=== PATIENT | male | born 1950 | race Caucasian/White ===

== ENCOUNTER 2019-05-29 12:35 | Observation (INO) | payer MEDICARE, OTHER, SELFPAY ==
[2019-05-29] VITALS (12 sets, daily range): BP systolic 152–178; BP diastolic 67–84; PULSE 57–75; RESP 16–20; TEMP 36.3–37; O2SAT 94–97; BMI 27.8; BMI 27.6
--- NOTE | 2019-05-29 12:41 | EKG12_ITS ---
Test Reason : DIZZINESS Blood Pressure : / mmHG Vent. Rate : 068 BPM Atrial Rate : 068 BPM P-R Int : 152 ms QRS Dur : 102 ms QT Int : 388 ms P-R-T Axes : 006 009 081 degrees QTc Int : 412 ms Normal sinus rhythm Nonspecific T wave abnormality Abnormal ECG Confirmed by BAUDILIO NAIK, CIARRA ([id number]), material expeditor RUFINO RUBIO ([id number]) on 05/31/2019 1:42:43 PM Referred By: Yamel Duffy Confirmed By:EVY ASTUDILLO MD
--- NOTE | 2019-05-29 13:12 | CT_ITS ---
STUDY: CT BRAIN WITHOUT CONTRAST REASON FOR EXAM: Male, 69 years old. Dizziness. RADIATION DOSAGE (If Supplied By Facility): CTDIvol = ( 60.81 ) mGy, DLP = ( 1181.11 ) mGycm TECHNIQUE: Transaxial CT imaging of the brain was performed without administration of intravenous contrast material. Individualized dose optimization techniques were used for this CT. COMPARISON: No relevant priors. FINDINGS: Normal soft tissue structures. Normal calvarium. Normal size ventricles and extra-axial spaces for the patient's age. Normal white matter tracts of the cerebral hemispheres. Normal basal ganglia and thalami. Normal brainstem. Normal cerebellum. There is no intracranial hemorrhage. There are no findings of an acute ischemic infarction. Normal visualized paranasal sinuses. CT/Brain/Head without Contrast IMPRESSION: Normal unenhanced CT scan of the brain. Electronically Signed: Justyn Cosme, at 14:25 EDT , Service support ,
[2019-05-29] MEDS: 0.9% Normal Saline 1,000 ML 50 ML IV (13:21)
--- NOTE | 2019-05-29 13:24 | RAD_ITS ---
STUDY: X-RAY CHEST REASON FOR EXAM: Male, 69 years old. Hypertension. TECHNIQUE: Single AP portable view of the chest. COMPARISON: None. FINDINGS: EKG electrodes are seen. The lungs are clear and expanded. There is no demonstrated pleural abnormality. Normal size heart. Normal mediastinum and gus. Normal visualized pulmonary arteries. There is atherosclerotic calcification of the aortic arch with tortuosity. There are diffuse degenerative changes of the visualized thoracic spine. There is degenerative osteoarthritis of the bilateral shoulders. There is no demonstrated abnormality of the visualized soft tissue structures of the upper abdomen. RAD/Chest 1 View (Portable) IMPRESSION: No acute abnormality is seen. Electronically Signed: Justyn Cosme, at 13:44 EDT , Service support ,
--- NOTE | 2019-05-29 13:30 | NURSING ---
NO OLD EKGS
[2019-05-29 13:31] LABS: Absolute Lymphocyte Count 1.59 X10^3/uL (0.83-4.51); Absolute Neutrophil Count 4.2 X10^3/uL (2.0-7.7); Basophil# 0.03 X10^3/uL; Basophil% 0.5 % (0-1); Eosinophil# 0.11 X10^3/uL; Eosinophils% 1.7 % (0-5); Hematocrit 43.3 % (40-54); Hemoglobin 14.7 g/dL (13.0-16.5); Lymphocyte # 1.59 X10^3/ul (4.0); Lymphocyte % 24.5 % (19-41); Mean Corp Hgb Conc 33.9 g/dL (32-36); Mean Corpuscular Hgb 29.4 pg (27.0-32.0); Mean Corpuscular Volume 86.6 fL (80-94); Mean Platelet Vol. 10.3 fl (6.2-12.0); Monocyte# 0.59 X10^3/uL; Monocyte% 9.1 % (0-10); NRBC Flagged by Analyzer 0 % (0-5); Neutrophil # 4.16 X10^3/uL (2.7-7.7); Neutrophil % 63.9 % (47-70); Platelet Count 153 K/mm3 (150-450); RBC Distribution Width CV 13.1 % (11.6-14.6); RBC Distribution Width SD 40.8 fl (35.1-43.9); White Blood Count 6.5 K/mm3 (4.4-11.0)
[2019-05-29 13:47] LABS: Anion Gap 6 (5-15); BUN 20 mg/dL (7-18); BUN/Creat Ratio 16.8 RATIO (10-20); Calcium,Total 9.1 mg/dL (8.5-10.1); Chloride 107 mmol/L (98-107); Creatinine, Serum 1.19 mg/dL (0.70-1.30); EST Glomerular Filtration Rate 64 mL/min (>60); Est Glom Filt Rate - Afr Amer 78 mL/min (>60); Estimated Creatinine Clearance 58.79 ml/min; Glucose 177 mg/dL (74-106); Potassium 4.4 mmol/L (3.5-5.1); Sodium Level 139 mmol/L (136-145)
[2019-05-29 13:49] LABS: International Normalized Ratio 1.1; Partial Thromboplast Time 27.6 Seconds (24.1-36.2); Prothrombin Time (Protime)PT. 13.8 SECONDS (11.7-14.9)
[2019-05-29 13:51] LABS: Bedside Glucose 158 mg/dL (70-110)
--- NOTE | 2019-05-29 15:10 | ED.VISSUMM ---
- ER Visit Summary Date of Service: 05/29/19 Chief Complaint: [Dizziness and difficulty with ambulation] History of Present Illness: The patient is a 69 M [presents to the emergency department stating that he feels very off balance and is having a hard time walking. Patient is visiting from [facility]. Patient states that he had an episode of lightheadedness 5 days ago that passed after a short time. Patient also several days ago had several episodes of loose watery stools. Patient yesterday had an episode of vertigo lasted about 15 minutes then resolved. Today around 1030 noticed that when he try to walk he felt very off balance and unsteady and felt like he had a hold onto things. He denies any vertigo today. He denies any paresthesias. He denies any weakness in the extremities. He denies any speech difficulty. He denies any vision changes. History of diabetes, hypertension, and high cholesterol. Patient has history of aortic stenosis. She had a stress test about 4 months ago that was unremarkable. Has had history of migraines in the past. With prior history of melanoma and basal cell carcinoma.] Physical Examination: [HEENT-PERRLA, EOMI. Cranial nerves II through XII grossly intact. TMs clear. Mucous membranes moist. No adenopathy. Cardiovascular-regular rate and rhythm without murmur or ectopy Lungs-clear to auscultation, chest wall stable without crepitus or subcu emphysema Abdomen-normoactive bowel sounds, soft, nontender, no rebound or rigidity, no peritoneal signs. Neuro [id number]-[id number]-flvr and heel nj testing within normal limits, negative Romberg, negative for drift, fundi benign. Hallpike maneuver was negative for nystagmus. I did have patient ambulate and he is able to bear weight but seems somewhat unsteady. Extremities-intact ?4, normal range of motion, normal pulses, atraumatic] Test Results: [CT scan of the brain without contrast was unremarkable. CBC with differential obtained was normal. Chemistries were normal. Troponin is less than 0.015. EKG obtained arrival showed a sinus bradycardia with a ventricular rate of 68 bpm with some nonspecific ST changes noted.] Emergency Department Course and Treatment: [Patient case was discussed with hospitalist will evaluate patient for admission.] Treatment Plan: [Admit for further work-up and evaluation of his dizziness and difficulty ambulating. Will need further stroke work-up as etiology of symptoms unclear at this time. Patient's NIH stroke scale was 0 and he is not a TPA candidate.] Disposition: [Admit] Impression: [Venous Difficulty ambulating-etiology uncertain] This note was generated with [email or web address] dictation software. It may contain incorrect words, spelling, and punctuation that were not noted in review of the chart prior to signing ED Disposition - Plan for ED Patient: Referrals: [facility] Doctor,Out of [Primary Care Provider] -
--- NOTE | 2019-05-29 15:19 | PCM.HP.STD ---
Problem List (1) Gait disturbance Status: Acute (2) Hypertension Status: Chronic Qualifiers: Hypertension type: essential hypertension Qualified Code(s): I10 - Essential (primary) hypertension (3) Hyperlipidemia Status: Chronic Qualifiers: Hyperlipidemia type: unspecified Qualified Code(s): E78.5 - Hyperlipidemia, unspecified (4) Diabetes mellitus, type II Status: Chronic Qualifiers: Diabetes mellitus shelter insulin use: without terminal gauger use Diabetes mellitus complication status: with other specified complication Qualified Code(s): E11.69 - Type 2 diabetes mellitus with other specified complication (5) Low testosterone Status: Chronic (6) History of malignant neoplasm of appendix Status: Chronic (7) History of testicular cancer Status: Chronic History of Present Illness Date of Admission: 05/29/19 Chief Complaint: Dizziness, unstead gait The patient is a 69 y/o M w/ PMHx: HTN, HLD, BPH, Diabetes mellitus type II, history of appendiceal cancer status post resection, history of testicular seminoma status post right orchiectomy who presents to the [facility] ED on 05/29/19 with history of recently travel from [place], visiting his son who lives locally with vague history the week prior of an episode of lightheadedness and dizziness, improved after only minutes with then spicy food intake the Monday prior to the current week with over the weekend some mildly loose stools which he attributed which have since resolved with onset the day prior to current presentation again episode of lightheadedness, dizziness, no specific vertiginous symptoms who now presents to the ED with history of abnormal gait starting earlier in the morning at approximately 10:30 AM. Evaluation in the emergency room with mild difficulty with gait but no specific leaning. Work-up in the ED included T 97.4, heart rate 71, BP 157/84, respiratory rate 16, 95% on room air, negative with static vital signs, CBC unremarkable, coags unremarkable, BMP with BUN/creatinine 20/1.19, glucose 177, troponin less than 0.015, chest x-ray with no acute cardiopulmonary findings, CT head with no acute intracranial findings, EKG w/ sinus bradycardia with nonspecific ST changes. In the ED patient administered normal saline. Past Medical History Past Medical History (Chronic Problems): Chronic Problems Hypertension (Chronic) Hyperlipidemia (Chronic) Diabetes mellitus, type II (Chronic) Low testosterone (Chronic) History of malignant neoplasm of appendix (Chronic) History of testicular cancer (Chronic) Allergies No Known Allergies Allergy (Verified 05/29/19 12:37) Home Medications: Ambulatory Orders Medication Instructions Recorded Albuterol IH (ProAir) [Proair Hfa 1 puff INHALATION Q4H PRN PRN 05/29/19 (SP)Vent Pts] Aspirin 81 mg PO DAILY 05/29/19 Atenolol 12.5 mg PO DAILY 05/29/19 Lisinopril [Prinivil] 10 mg PO DAILY 05/29/19 Metformin HCl 850 mg PO BID 05/29/19 Naproxen Sodium [Aleve] 440 mg PO DAILY 05/29/19 [place]-3 Fatty Acids/Fish Oil 2 cap PO DAILY 05/29/19 [[place] 3 Fish Oil Softgel] Rosuvastatin Calcium 10 mg PO DAILY 05/29/19 Tadalafil [Cialis] 10 mg PO DAILY PRN PRN 05/29/19 Tamsulosin HCl [Flomax] 0.4 mg PO DAILY 05/29/19 Testosterone [Androgel] 1 applicatio TP DAILY 05/29/19 Surgical History: - - Appendiceal cancer with resection, testicular seminoma with right orchiectomy, vasectomy with reversal, right total hip replacement. Psychiatric History: No pertinent psych hx Lives: Spouse/ Significant Other Smoking Status: Former smoker - Patient quit proximate 30 years prior with prior to this pipe tobacco usage. Tobacco Use: Non-smoker Alcohol: Occasional Drugs: None - *Family History Maternal History Items: - - Maternal family history of heart disease, stroke, major with in her 70s Paternal History Items: - - Paternal family history of successful suicide in his 40s with anxiety depressive history. Review of Systems Constitutional: Reports: Fatigue. Denies: Chills, Fever, Malaise, Weakness, Weight Change HEENT: Denies: Head Aches, Sinus Congestion, Sinus Drainage Cardiovascular: Reports: Light Headedness. Denies: Chest Pain, Palpitations Respiratory: Denies: Cough, Shortness of breath at rest, Sputum production Gastrointestinal: Denies: Abdominal Pain, Nausea, Vomiting Genitourinary: Denies: Dysuria Musculoskeletal: Reports: Back Pain, Joint Pain. Denies: Joint Tenderness Skin: Denies: Rash, Wounds Neurological: Reports: Balance problems. Denies: Focal weakness, Numbness, Tingling Psychiatric: Denies: Anxiety, Depression, Homicidal Ideations, Suicidal Ideations Hematologic/ Lymphatic: Denies: Easy Bruising, Easy Bleeding VTE Information - Inpt Only VTE Present on Admission: No VTE Mechan Device Prophylaxis: SCD's VTE Pharm Prophylaxis ordered?: Yes Patient Problems: Active and Suspected Problems Gait disturbance (Acute) Subjective: Patient seated upright in the ED bed, no acute distress, no current complaints of dizziness. Objective: Physical Examination: General: awake, alert, oriented x 3 and cooperative, seated upright in the ED bed in no apparent distress. Skin: normal color, turgor, no icterus, cyanosis. HEENT: AT/NC, EOMI, PERRLA, MMM, no carotid bruits or JVD noted. Lungs: CTA bilaterally, moderate effort, mild decrease BL bases, no rales, ronchi or wheezing. Heart: Regular rate and rhythm; no gallop, rub audible, SM. Abdomen: soft, NTTP, ND, normal BS, no HSM. Extremities: no cyanosis, clubbing, or edema. Neurological: patient awake, alert, oriented x 3; cognitive function intact; pupils equally reactive to light and accomodation; cranial nerves II-XII grossly normal, moving all 4 extremities, no focal deficits, strength preserved, finger-nose bilaterally appropriate, [id number]-ik-[id number] bilaterally appropriate, negative Babinski bilaterally, sensation intact bilaterally, acevedo of vision intact. Psychiatric: affect appears mildly fatigued, no acute evidence of depressive or anxiety feelings. - Physical Exam Vital Signs Temp Pulse Resp BP Pulse Ox 97.4 F L 63 20 H 163/84 H 94 05/29/19 12:37 05/29/19 14:05 05/29/19 14:05 05/29/19 14:05 05/29/19 14:05 Oxygen Delivery Method Room Air Weight: 194 lb 0.108 oz Body Mass Index (BMI) 27.8 Finger Stick Blood Glucose 158 Laboratory Tests Past 24 Hrs 05/29/19 05/29/19 05/29/19 13:20 13:20 13:20 WBC 6.5 RBC 5.00 Hgb 14.7 Hct 43.3 MCV 86.6 MCH 29.4 MCHC 33.9 RDW Std Deviation 40.8 RDW Coeff of Ben 13.1 Plt Count 153 MPV 10.3 Immature Gran % (Auto) 0.300 Neut % (Auto) 63.9 Lymph % (Auto) 24.5 [place] % (Auto) 9.1 Eos % (Auto) 1.7 Baso % (Auto) 0.5 Absolute Neuts (auto) 4.2 Absolute Lymphs (auto) 1.59 Nucleated RBC % 0 PT 13.8 INR 1.1 APTT 27.6 Sodium 139 Potassium 4.4 Chloride 107 Carbon Dioxide 26.0 Anion Gap 6 BUN 20 H Creatinine 1.19 Estim Creat Clear Calc 58.79 Est GFR (MDRD) Af Amer 78 Est GFR (MDRD) Non-Af 64 BUN/Creatinine Ratio 16.8 Glucose 177 H Calcium 9.1 Troponin I < 0.015 POC Glucose 05/29/19 13:30 POC Glucose 158 H Assessment/Plan All Active Problems Gait disturbance (Acute) The patient is a 69 y/o M w/ PMHx: HTN, HLD, BPH, Diabetes mellitus type II, history of appendiceal cancer status post resection, history of testicular seminoma status post right orchiectomy who presents to the [facility] ED on 05/29/19 with history of episode x2 of lightheadedness and dizziness which resolved after minutes over the last 1 week with now onset gait disturbance starting at approximately 10:30 AM on ED day of presentation. 1. Unsteady Gait concerning for TIA/CVA: Work-up in the ED included T 97.4, heart rate 71, BP 157/84, respiratory rate 16, 95% on room air, negative with static vital signs, CBC unremarkable, coags unremarkable, BMP with BUN/creatinine 20/1.19, glucose 177, troponin less than 0.015, chest x-ray with no acute cardiopulmonary findings, CT head with no acute intracranial findings, EKG w/ sinus bradycardia with nonspecific ST changes. Will admit to PCU, will obtain MRI Brain, MRA Head and Neck, ECHO, PT/OT/Speech/Nutrition evaluation per protocol. Will allow permissive HTN the MRI results, maintain on asa with addition of plavix given already previously on ASA only, transition to high dose statin w/ AM FLP, fall precautions. Mag, TSH, FLP, HgbA1c pending. 2. Diabetes mellitus type II: Hold oral home regimen, obtain hemoglobin A1c, nutrition consulted for education teaching, ADA diet, accu checks w/ ISS. 3. Hypertension: Maintain on permissive hypertension pending further evaluation #1. 4. Hyperlipidemia: Continue home statin regimen. AM FLP. 5. BPH: Continue patient home Flomax regimen. 6. DVT prophylaxis: SCDs, Lovenox. Code Visit OBSV E&M: [id number] Initial observation care L3
--- NOTE | 2019-05-29 15:31 | NURSING ---
PCU WHITE OBS DIZZINESS, DIFFICULTY AMBULATING
--- NOTE | 2019-05-29 16:28 | ECHOD_ITS ---
Reason For Study: TIA/CVA Procedure This was a 2D Doppler, Color Flow transthoracic echocardiogram. Contrast injection was performed. Exam performed portable in patient room. Left Ventricle Normal LV size. Concentric left ventricular hypertrophy. The estimated ejection fraction is 65 %. No regional wall motion abnormalities noted. Right Ventricle Normal RV size. Normal systolic function. Atria Normal left atrium. Normal right atrium. No doppler evidence for ASD. Bubble contrast study negative for right to left interatrial shunt. Mitral Valve There is no mitral valve stenosis. No mitral valve insufficiency. Tricuspid Valve There is no tricuspid stenosis. Trivial tricuspid valve insufficiency. Pulmonary artery systolic pressure is 35 mmHg. Aortic Valve Moderate aortic stenosis. Mild (1+) aortic valve insufficiency. Pulmonic Valve There is no pulmonic valvular stenosis. No pulmonic valve insufficiency. Great Vessels Normal aortic root. Pericardium/Pleural No pericardial effusion. Medication Performed a rapid injection of agitated mix of 9 cc saline and 1cc air to assess for atrial septal defect. MMode/2D Measurements & Calculations LVIDd: 4.1 cm IVSd: 1.5 cm LVOT diam: 2.0 cm LVIDs: 2.6 cm LVPWd: 1.3 cm FS: 37.9 % LVOT area: 3.3 cm2 Ao root diam: 3.7 cm LAV(MOD-bp): 44.4 ml LA A4 area: 17.6 cm2 LA dimension: 4.3 cm LAV(MOD-bp) Indexed: 21.8 ml/m2 LAV(MOD-sp2): 39.5 ml LAV(MOD-sp4): 44.6 ml RA A4 area: 17.9 cm2 Time Measurements MV dec time: 0.24 sec Doppler Measurements & Calculations MV E max roya: 76.8 cm/sec MV V2 max: 112.7 cm/sec MV P1/2t max roya: 106.9 cm/sec MV A max roya: 96.4 cm/sec MV max P.1 mmHg MV P1/2t: 70.2 msec MV E/A: 0.80 MV V2 mean: 52.1 cm/sec MV mean P.3 mmHg MV dec slope: 446.2 cm/sec2 MV V2 VTI: 39.8 cm MVA(P1/2t): 3.1 cm2 MVA(VTI): 2.1 cm2 Ao V2 max: 332.8 cm/sec AI max roya: 367.0 cm/sec LV V1 max: 98.9 cm/sec Ao max P.3 mmHg AI max P.9 mmHg LV V1 max P.9 mmHg Ao V2 mean: 206.6 cm/sec LV V1 mean P.1 mmHg Ao mean P.1 mmHg AI dec slope: 160.6 cm/sec2 LV V1 mean: 67.3 cm/sec Ao V2 VTI: 76.3 cm AI P1/2t: 669.2 msec LV V1 VTI: 25.9 cm ANDREW(I,D): 1.1 cm2 ANDREW(V,D): 0.97 cm2 SV(LVOT): 84.8 ml PA V2 max: 80.9 cm/sec TR max roya: 273.1 cm/sec TR max P.8 mmHg Interpretation Summary Bubble contrast study negative for right to left interatrial shunt. Moderate aortic stenosis. Mild (1+) aortic valve insufficiency. The estimated ejection fraction is 65 %. Ordering Physician: Yamel Duffy Referring Physician: Yamel Duffy Performed By: Sandro Kamara RCS
--- NOTE | 2019-05-29 16:28 | MRI_ITS ---
STUDY: MRA OF THE HEAD WITHOUT CONTRAST REASON FOR EXAM: Male, 69 years old. Unsteady gait TECHNIQUE: 3-D [id number] (TOF) imaging was performed with MIPs. The study was performed unenhanced. COMPARISON: None. FINDINGS: Normal bilateral petrous carotid arteries. Normal right cavernous carotid artery with a normal supraclinoid bifurcation. Normal left cavernous carotid artery with a normal supraclinoid bifurcation. Normal right A1 segments of the anterior cerebral artery. Diffusely narrowed left A1 segments of the anterior cerebral artery possibly representing normal variant. Normal intact anterior communicating artery (ACOM). Normal bilateral A2 segments of the anterior cerebral arteries. Normal right M1 and M2 segments of the middle cerebral arteries, with a normal M1 bifurcation. Normal left M1 and M2 segments of the middle cerebral arteries, with a normal M1 bifurcation. Nonvisualized right posterior communicating artery (PCOM). Normal left posterior communicating artery (PCOM). Normal bilateral vertebral arteries. Normal basilar artery with a normal basilar bifurcation. The visualized bilateral superior cerebellar (SCA) arteries are normal. Normal right posterior cerebral artery.. Normal left posterior cerebral artery P1 segment and atretic P2 segment.. The remainder of the posterior cerebral artery vascular territory is supplied by the posterior communicating artery There is no demonstrated aneurysm of the [place]. There is no major vessel occlusion or hemodynamically significant stenosis. There is no demonstrated abnormality of the visualized brain. MRI/MRA Head ONLY without Contrast IMPRESSION: Normal MRA of the head Electronically Signed: Blu Reed MD at 20:40 EDT , Service support ,
--- NOTE | 2019-05-29 16:28 | MRI_ITS ---
STUDY: MRA NECK WITHOUT CONTRAST REASON FOR EXAM: Male, 69 years old. Dizziness TECHNIQUE: Source images were obtained, MIPs were performed. The study was performed unenhanced. COMPARISON: None. FINDINGS: RIGHT CAROTID ARTERIES: Normal right common carotid artery (CCA). Normal right common carotid bulb. Normal origin of the right internal carotid (ICA) artery without a hemodynamically significant stenosis. Normal visualized cervical portion of the right internal carotid artery. Normal origin of the right external carotid artery (ECA). LEFT CAROTID ARTERIES: Normal left common carotid artery (CCA). Normal left common carotid bulb. Normal origin of the left internal carotid (ICA) artery without a hemodynamically significant stenosis. Normal visualized cervical portion of the left internal carotid artery. Normal origin of the left external carotid artery (ECA). VERTEBRAL ARTERIES: Normal antegrade flow within the bilateral vertebral artery without a hemodynamically significant stenosis. MRI/MRA Neck without Contrast IMPRESSION: Normal bilateral cervical carotid and vertebral arteries. Electronically Signed: Blu Reed MD at 20:40 EDT , Service support ,
--- NOTE | 2019-05-29 16:28 | MRI_ITS ---
STUDY: MRI BRAIN WITHOUT CONTRAST REASON FOR EXAM: Male, 69 years old. Unsteady gait and dizziness TECHNIQUE: Standardized multiplanar fat and water weighted pulse sequences were obtained. COMPARISON: CT of the brain on May 29, 2019 FINDINGS: Mild atrophy and periventricular white matter ischemic changes without mass effect or restricted diffusion.. Normal bilateral basal ganglia. Normal thalami. There is no extra-axial fluid accumulation. Normal flow voids within the major intracranial circulation suggesting patency by spin echo criteria. Normal sella turcica, pituitary gland, infundibular stalk, optic chiasm and hypothalamus. Normal tectal plate and pineal gland. Normal midbrain, zayra and medulla. Normal cerebellum. Normal basal cisterns. Normal bilateral temporal bones. Normal bilateral internal auditory canals. No demonstrated orbital abnormality, within the constraints of a routine brain study. Minor mucosal thickening of the ethmoid air cells bilaterally.. Normal calvarium and skull base. Normal visualized soft tissue structures. Normal visualized upper cervical spine. MRI/Brain without Contrast IMPRESSION: Mild atrophy and periventricular white matter ischemic changes without evidence for acute infarct Electronically Signed: Blu Reed MD at 20:36 EDT , Service support ,
[2019-05-29 16:47] LABS: Magnesium 1.7 mg/dL (1.6-2.6)
[2019-05-29 17:10] LABS: Bedside Glucose 96 mg/dL (70-110)
[2019-05-29] MEDS: Insulin Lispro 100 UNIT/ML INSULN.PEN SC (21:27)
[2019-05-29] MEDS: Tamsulosin HCl 0.4 MG Capsule PO (21:27)
[2019-05-29 21:36] LABS: Bedside Glucose 175 mg/dL (70-110)
[2019-05-30 00:30] VITALS: BP 139/62; PULSE 58; RESP 14; TEMP 36.7; O2SAT 98
[2019-05-30 02:59] VITALS: PULSE 47
[2019-05-30 04:30] VITALS: BP 123/61; PULSE 53; RESP 14; TEMP 36.6; O2SAT 97
[2019-05-30 06:30] LABS: Anion Gap 8 (5-15); BUN 16 mg/dL (7-18); BUN/Creat Ratio 16.5 RATIO (10-20); Calcium,Total 8.5 mg/dL (8.5-10.1); Chloride 111 mmol/L (98-107); Cholesterol 121 mg/dL (200); Creatinine, Serum 0.97 mg/dL (0.70-1.30); EST Glomerular Filtration Rate 81 mL/min (>60); Est Glom Filt Rate - Afr Amer 98 mL/min (>60); Estimated Creatinine Clearance 72.12 ml/min; Glucose 106 mg/dL (74-106); High Density Lipoprotein 52 mg/dL; Potassium 4.5 mmol/L (3.5-5.1); Sodium Level 143 mmol/L (136-145); Thyroid Stim Hormone (TSH) 4.62 uIU/mL (0.358-3.74); Triglycerides 139 mg/dL; Very Low Density Lipoprotein 28 mg/dL (5-40)
[2019-05-30 06:32] LABS: Absolute Lymphocyte Count 1.93 X10^3/uL (0.83-4.51); Absolute Neutrophil Count 3.4 X10^3/uL (2.0-7.7); Basophil# 0.03 X10^3/uL; Basophil% 0.5 % (0-1); Eosinophils% 1.6 % (0-5); Hematocrit 38.7 % (40-54); Hemoglobin 12.9 g/dL (13.0-16.5); Lymphocyte # 1.93 X10^3/ul (4.0); Lymphocyte % 31.7 % (19-41); Mean Corp Hgb Conc 33.3 g/dL (32-36); Mean Platelet Vol. 10.6 fl (6.2-12.0); Monocyte# 0.62 X10^3/uL; Monocyte% 10.2 % (0-10); NRBC Flagged by Analyzer 0 % (0-5); Neutrophil # 3.39 X10^3/uL (2.7-7.7); Neutrophil % 55.8 % (47-70); Platelet Count 146 K/mm3 (150-450); RBC Distribution Width CV 13.2 % (11.6-14.6); RBC Distribution Width SD 41.2 fl (35.1-43.9); Red Blood Count 4.45 M/mm3 (4.6-6.2); White Blood Count 6.1 K/mm3 (4.4-11.0)
[2019-05-30 06:46] LABS: Bedside Glucose 114 mg/dL (70-110)
[2019-05-30 07:00] VITALS: PULSE 48
[2019-05-30 07:30] VITALS: O2SAT 95
[2019-05-30 08:05] LABS: Hemoglobin A1c 6.6 % (4.2-6.3)
[2019-05-30] MEDS: Aspirin 81 MG TAB.CHEW PO (08:07)
[2019-05-30 10:08] VITALS: BP 150/65; PULSE 66; RESP 18; TEMP 36.5; O2SAT 96
[2019-05-30] MEDS: Atorvastatin Calcium 80 MG Tablet PO (10:11)
--- NOTE | 2019-05-30 11:40 | DCINST_ITS ---
- Discharge Diagnoses Current Active Problems: Current Active and Chronic Problems Gait disturbance (Acute) Hypertension (Chronic) Hyperlipidemia (Chronic) Diabetes mellitus, type II (Chronic) Low testosterone (Chronic) History of malignant neoplasm of appendix (Chronic) History of testicular cancer (Chronic) You will use the following diet at home:: Calorie/Carbohydrate Controlled (specify 1200, 1400, etc) - 1800 camilo / day, low carb diet, Cardiac Your food should be the consistency of: Regular Your liquids should be the consistency of: Regular/Thin Discharge Activity: Return to Normal Activity Allergies/Adverse Reactions: Allergies No Known Allergies Allergy (Verified 05/29/19 12:37) Medications to take at Discharge Albuterol IH (ProAir) [Proair Hfa] 1 puff INHALATION Q4H PRN PRN 05/29/19 Aspirin 81 mg PO DAILY 05/29/19 Atenolol 12.5 mg PO DAILY 05/29/19 Lisinopril [Prinivil] 10 mg PO DAILY 05/29/19 Metformin HCl 850 mg PO BID 05/29/19 Naproxen Sodium [Aleve] 440 mg PO DAILY 05/29/19 [place]-3 Fatty Acids/Fish Oil [[place] 3 Fish Oil Softgel] 2 cap PO DAILY 05/29/19 Rosuvastatin Calcium 10 mg PO DAILY 05/29/19 Tadalafil [Cialis] 10 mg PO DAILY PRN PRN 05/29/19 Tamsulosin HCl [Flomax] 0.4 mg PO DAILY 05/29/19 Testosterone [Androgel] 1 applicatio TP DAILY 05/29/19 Primary Care Physician: [facility] Doctor,Out of [NON-STAFF] - Please follow up with your Primary Care Physician in: 1-2 weeks Test Results: Test results from this visit will be discussed in further detail at your follow-up appointment, if applicable. Proposed Discharge Date: 05/30/19
[2019-05-30 11:46] LABS: T4 Free Direct 1.23 ng/dL (0.76-1.46)
--- NOTE | 2019-05-30 14:52 | DS.PCM_ITS ---
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 RAD/Chest 1 View (Portable) IMPRESSION: No acute abnormality is seen. MRI/Brain without Contrast IMPRESSION: Mild atrophy and periventricular white matter ischemic changes without evidence for acute infarct MRI/MRA Head ONLY without Contrast IMPRESSION: Normal MRA of the head MRI/MRA Neck without Contrast IMPRESSION: Normal bilateral cervical carotid and vertebral arteries. Echo: Interpretation Summary Bubble contrast study negative for right to left interatrial shunt. Moderate aortic stenosis. Mild (1+) aortic valve insufficiency. The estimated ejection fraction is 65 %. Operations: None Procedures: 2-D Echocardiogram Summary of Care Provided: Hospital Course: The patient is a 69 year old M with pmhx as above who presented to the ER with dizziness and unsteady gait. He was in town visiting his son from [place] and the week prior to presentation he had episodes of LH and dizziness, and did have associated mild difficulty walking. In the ER CT brain was negative. BP was somewhat elevated. Labs were unremarkable. He was admitted with concern for acute CVA. He was placed on PCU on tele. On tele he had mild bradycardia while sleeping overnight. He reported this was normal for him. He had no other events. Dizziness resolved overnight. The following morning he had an MRI of the brain, and MRA of the head and neck. These were normal. Echo showed known . TSH was slightly elevated, however T4 was normal. Troponin was negative. A1C was 6.6. He was felt to have benign vertigo, likely peripheral. He was discharged home in stable condition. As he had no further symptoms I recommended that if they return to try PRN OTC vertigo meds. His doctors are all out of state. We advised him to follow up with his PCP in 1-2 weeks. This patient was seen by Twan Go PA-C under the supervision of Dr. Canales. [] Patient Problems: Active and Suspected Problems BPPV (benign paroxysmal positional vertigo) (Acute) - Physical Exam General: Alert, Oriented x3, Cooperative HEENT: Atraumatic, PERRLA, EOMI, Normocephalic Neck: Supple, No JVD, Negative Carotid Bruits Lungs: Clear to auscultation, Normal air movement Cardiovascular: Regular rate, No murmurs Abdomen: Bowel Sounds Present, Soft, Non Tender Extremities: No edema, Capillary Refill Less than 3 Seconds Skin: No rashes, No breakdown Musculoskeletal: No Tenderness to Palpation of Joints or Extremities Neurological: Cranial nerves II-XII grossly intact Psych/Mental Status: Normal Affect, Appropriate Vital Signs Temp Pulse Resp BP Pulse Ox 97.7 F L 66 18 150/65 H 96 05/30/19 10:08 05/30/19 10:08 05/30/19 10:08 05/30/19 10:08 05/30/19 10:08 Oxygen Delivery Method Room Air Weight: 192 lb 3.889 oz Body Mass Index (BMI) 27.6 Finger Stick Blood Glucose 158 Intake and Output for Last 24 Hours 05/28/19 05/29/19 05/30/19 23:59 23:59 23:59 Intake Total 1330 / 1330 500 / 500 Balance 1330 / 1330 500 / 500 Laboratory Tests Past 24 Hrs 05/29/19 05/30/19 05/30/19 13:20 05:05 05:05 WBC 6.1 RBC 4.45 L Hgb 12.9 L Hct 38.7 L MCV 87.0 MCH 29.0 MCHC 33.3 RDW Std Deviation 41.2 RDW Coeff of Ben 13.2 Plt Count 146 L MPV 10.6 Immature Gran % (Auto) 0.200 Neut % (Auto) 55.8 Lymph % (Auto) 31.7 [place] % (Auto) 10.2 H Eos % (Auto) 1.6 Baso % (Auto) 0.5 Absolute Neuts (auto) 3.4 Absolute Lymphs (auto) 1.93 Nucleated RBC % 0 Sodium 143 Potassium 4.5 Chloride 111 H Carbon Dioxide 24.0 Anion Gap 8 BUN 16 Creatinine 0.97 Estim Creat Clear Calc 72.12 Est GFR (MDRD) Af Amer 98 Est GFR (MDRD) Non-Af 81 BUN/Creatinine Ratio 16.5 Glucose 106 Hemoglobin A1c Calcium 8.5 Magnesium 1.7 Triglycerides 139 Cholesterol 121 LDL Cholesterol 41 VLDL Cholesterol 28 HDL Cholesterol 52 TSH 4.62 H Free T4 05/30/19 05/30/19 05:05 05:05 WBC RBC Hgb Hct MCV MCH MCHC RDW Std Deviation RDW Coeff of Ben Plt Count MPV Immature Gran % (Auto) Neut % (Auto) Lymph % (Auto) [place] % (Auto) Eos % (Auto) Baso % (Auto) Absolute Neuts (auto) Absolute Lymphs (auto) Nucleated RBC % Sodium Potassium Chloride Carbon Dioxide Anion Gap BUN Creatinine Estim Creat Clear Calc Est GFR (MDRD) Af Amer Est GFR (MDRD) Non-Af BUN/Creatinine Ratio Glucose Hemoglobin A1c 6.6 H Calcium Magnesium Triglycerides Cholesterol LDL Cholesterol VLDL Cholesterol HDL Cholesterol TSH Free T4 1.23 POC Glucose 05/30/19 05/29/19 05/29/19 06:39 21:22 16:52 POC Glucose 114 H 175 H 96 Discharge Diet: Low fat/ Low Cholesterol, 1800 Calorie Control Diet, 2000 mg Sodium Diet Discharge Activity: Return to Normal Activity Home Medications: Medications to take at Discharge Albuterol IH (ProAir) [Proair Hfa] 1 puff INHALATION Q4H PRN PRN 05/29/19 Aspirin 81 mg PO DAILY 05/29/19 Atenolol 12.5 mg PO DAILY 05/29/19 Lisinopril [Prinivil] 10 mg PO DAILY 05/29/19 Metformin HCl 850 mg PO BID 05/29/19 Naproxen Sodium [Aleve] 440 mg PO DAILY 05/29/19 [place]-3 Fatty Acids/Fish Oil [[place] 3 Fish Oil Softgel] 2 cap PO DAILY 05/29/19 Rosuvastatin Calcium 10 mg PO DAILY 05/29/19 Tadalafil [Cialis] 10 mg PO DAILY PRN PRN 05/29/19 Tamsulosin HCl [Flomax] 0.4 mg PO DAILY 05/29/19 Testosterone [Androgel] 1 applicatio TP DAILY 05/29/19 Primary Care Physician: Cleve Doctor,Out of [NON-STAFF] - Please follow up with your Primary Care Physician in: 1-2 weeks Disposition: Home Patient Condition:: Stable Medical Necessity - Tobacco Use Smoking Status: Former smoker - Patient quit proximate 30 years prior with prior to this pipe tobacco usage. 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 Data reviewed. I agree with the above note by the physician ophthalmology assistant. The patient is a 69 year old M presents with dizziness. Patient woke up that way and then resolved spontaneously but then just felt weak and ataxic in his lower extremities and but was not dizzy at that time, self-reported. Patient was evaluated and underwent stroke work-up which was negative. Is my feeling, even though symptoms are atypical, that this was attributed to benign paroxysmal positional vertigo. Patient is never had issues with this before so I do not necessarily recommend treatment nor physical therapy evaluation. Patient is from [place] visiting his son still be following up with his physicians over there. [] - Physical Exam General: Alert, Cooperative HEENT: Atraumatic, PERRLA, EOMI, Normocephalic Lungs: Clear to auscultation, Normal air movement Cardiovascular: Regular rate, Regular Rhythm, Normal S1, Normal S2 Abdomen: Bowel Sounds Present, Non Tender Extremities: No edema, No Calf Tenderness Skin: No rashes, No breakdown Musculoskeletal: No Tenderness to Palpation of Joints or Extremities, No Muscle Wasting Neurological: Cranial nerves II-XII grossly intact, Deep Tendon Reflexes 2+/4 and Symmetrical, Coordination normal Vital Signs Temp Pulse Resp BP Pulse Ox 36.5 C L 66 18 150/65 H 96 05/30/19 10:08 05/30/19 10:08 05/30/19 10:08 05/30/19 10:08 05/30/19 10:08 Oxygen Delivery Method Room Air Weight: 87.2 kg Body Mass Index (BMI) 27.6 Finger Stick Blood Glucose 158 Intake and Output for Last 24 Hours 05/28/19 05/29/19 05/30/19 23:59 23:59 23:59 Intake Total 1330 / 1330 500 / 500 Balance 1330 / 1330 500 / 500 Laboratory Tests Past 24 Hrs 05/29/19 05/30/19 05/30/19 13:20 05:05 05:05 WBC 6.1 RBC 4.45 L Hgb 12.9 L Hct 38.7 L MCV 87.0 MCH 29.0 MCHC 33.3 RDW Std Deviation 41.2 RDW Coeff of Ben 13.2 Plt Count 146 L MPV 10.6 Immature Gran % (Auto) 0.200 Neut % (Auto) 55.8 Lymph % (Auto) 31.7 [place] % (Auto) 10.2 H Eos % (Auto) 1.6 Baso % (Auto) 0.5 Absolute Neuts (auto) 3.4 Absolute Lymphs (auto) 1.93 Nucleated RBC % 0 Sodium 143 Potassium 4.5 Chloride 111 H Carbon Dioxide 24.0 Anion Gap 8 BUN 16 Creatinine 0.97 Estim Creat Clear Calc 72.12 Est GFR (MDRD) Af Amer 98 Est GFR (MDRD) Non-Af 81 BUN/Creatinine Ratio 16.5 Glucose 106 Hemoglobin A1c Calcium 8.5 Magnesium 1.7 Triglycerides 139 Cholesterol 121 LDL Cholesterol 41 VLDL Cholesterol 28 HDL Cholesterol 52 TSH 4.62 H Free T4 05/30/19 05/30/19 05:05 05:05 WBC RBC Hgb Hct MCV MCH MCHC RDW Std Deviation RDW Coeff of Ben Plt Count MPV Immature Gran % (Auto) Neut % (Auto) Lymph % (Auto) [place] % (Auto) Eos % (Auto) Baso % (Auto) Absolute Neuts (auto) Absolute Lymphs (auto) Nucleated RBC % Sodium Potassium Chloride Carbon Dioxide Anion Gap BUN Creatinine Estim Creat Clear Calc Est GFR (MDRD) Af Amer Est GFR (MDRD) Non-Af BUN/Creatinine Ratio Glucose Hemoglobin A1c 6.6 H Calcium Magnesium Triglycerides Cholesterol LDL Cholesterol VLDL Cholesterol HDL Cholesterol TSH Free T4 1.23 POC Glucose 05/30/19 05/29/19 05/29/19 06:39 21:22 16:52 POC Glucose 114 H 175 H 96 Discharge Diet: Low fat/ Low Cholesterol, 1800 Calorie Control Diet, 2000 mg Sodium Diet Discharge Activity: Return to Normal Activity Disposition: Home Minutes spent on discharge:: 32 Patient Condition:: Stable Medical Necessity - Tobacco Use Smoking Status: Former smoker Tobacco Use: Non-smoker Meaningful Use Info Meaningful Use Diagnoses (Choose all that apply): None applicable Code Visit OBSV E&M: 02158 Observation care discharge
== END 2019-05-30 11:40 | disposition home or self-care (01) ==
LOC: ED 13:37 → PCU 16:03
PROVIDERS: Physician Assistant; Admitting Provider Family Medicine; Emergency Provider Emergency Medicine; Referring Provider Family Medicine
DX: H81.10 Benign paroxysmal vertigo, unspecified ear (principal); R29.700 NIHSS score 0; E78.5 Hyperlipidemia, unspecified; E11.9 Type 2 diabetes mellitus without complications; N40.0 Benign prostatic hyperplasia without lower urinary tract symptoms; I08.2 Rheumatic disorders of both aortic and tricuspid valves; I10 Essential (primary) hypertension; Z85.47 Personal history of malignant neoplasm of testis; Z85.038 Personal history of other malignant neoplasm of large intestine; Z85.820 Personal history of malignant melanoma of skin; Z85.828 Personal history of other malignant neoplasm of skin; Z79.899 Other long term (current) drug therapy; Z79.84 Long term (current) use of oral hypoglycemic drugs; Z79.82 Long term (current) use of aspirin; Z87.891 Personal history of nicotine dependence
CPT/HCPCS: 36415; 70450; 70544; 70547; 70551; 71045; 80048; 80061; 82962; 83036; 83735; 84439; 84443; 84484; 85025; 85610; 85730; 93005; 93306; 97802; 99218; 99285; J7030; A4216; G0378